=== PATIENT | female | born 1990 | race Caucasian/White ===

== ENCOUNTER 2017-06-26 21:45 | Inpatient (IN) | payer BC ==
[~2017-06-26] VITALS: Ht 157.5 cm; Wt 59.1 kg
[2017-06-26] MEDS ORDERED: MOTRIN 800800 MG/TAB PO (21:59)
[2017-06-26] MEDS ORDERED: PERCOCET 325 MG1 TA2 PO (21:59)
[2017-06-26 22:28] VITALS: BP 116/75; PULSE 78
[2017-06-26 22:45] VITALS: BP 121/78; PULSE 88
[2017-06-26 23:00] VITALS: BP 123/76; PULSE 76
[2017-06-26 23:09] LABS: BASO % 0.3 % (0.0-2.0); EOS # 0.1 (0.0-0.7); EOS % 0.5 % (0-4.0); GRAN # 9.1 (1.4-6.5); GRAN % 73.9 % (42.2-75.2); HEMATOCRIT 37.3 % (37.0-47.0); LYMPH # 2.4 (1.2-3.4); LYMPH % 19.7 % (20.0-51.0); MEAN CELL VOLUME 89 fl (80.0-100.0); MEAN CORPUSCULAR HEMOGLOBIN 31 pg (27.0-31.0); MEAN CORPUSCULAR HGB CONC 35 g/dl (33.0-37.0); MEAN PLATELET VOLUME 11.8 fl (7.4-10.4); MONO # 0.6 (0.1-0.6); MONO % 5.1 % (1.7-9.3); PLATELET COUNT 176 K/mm3 (130-400); RED BLOOD COUNT 4.17 M/mm3 (4.10-5.30); REDCELL DISTRIBUTION WIDTH-CV 12.1 % (11.5-14.5)
[2017-06-26] MEDS ORDERED: PRENATAL1 TA7 PO (23:17)
[2017-06-26 23:25] VITALS: BP 119/66; PULSE 77
[2017-06-26 23:56] VITALS: BP 118/78; PULSE 87
[2017-06-27] VITALS: BP 124/80; PULSE 68
[2017-06-27 00:30] VITALS: BP 134/68; PULSE 65
[2017-06-27] MEDS ORDERED: LEXAPRO 10MG10 MG PO (09:28)
[2017-06-27 09:30] VITALS: BP 111/76; PULSE 97; TEMP 97.6
[2017-06-27 18:40] VITALS: BP 124/77; PULSE 75; TEMP 97.6
[2017-06-28 08:52] VITALS: BP 109/75; PULSE 84; TEMP 97.8
== END 2017-06-28 09:30 | disposition home or self-care (01) | DRG 775 ==
LOC: LDRO 21:45 → LDR 21:59 → OB 06-27 00:30
PROVIDERS: Obstetrics & Gynecology
PROC: 10E0XZZ Delivery of Products of Conception, External Approach (ICD-10-PCS; principal; 2017-06-26)
PROC: 0W8NXZZ Division of Female Perineum, External Approach (ICD-10-PCS; 2017-06-26)
DX: O36.0130 Maternal care for anti-D [Rh] antibodies, third trimester, not applicable or unspecified (principal); Z3A.38 38 weeks gestation of pregnancy; Z37.0 Single live birth
CPT/HCPCS: J2590

== ENCOUNTER → 2019-02-04 | Outpatient (CLI) | payer BC ==
[~2019-02-04] MED LIST: LEXAPRO 10MG10 MG PO; MOTRIN 800800 MG/TAB PO; PERCOCET 325 MG1 TA2 PO; PRENATAL1 TA7 PO
== END ==
LOC: COL.RAD 10:19
DX: N20.0 Calculus of kidney (principal)

== ENCOUNTER 2019-05-26 10:35 | Inpatient (IN) | payer BC ==
[~2019-05-26] VITALS: Ht 157.5 cm; Wt 60.9 kg
[2019-05-26] VITALS (12 sets, daily range): BP systolic 103–137; BP diastolic 55–86; PULSE 64–99; TEMP 97.5–98
--- NOTE | 2019-05-26 11:08 | NUR ---
Pt taken off monitors per request to ambulate around room.
[2019-05-26] MEDS ORDERED: UNISOM25 MG PO (11:15)
[2019-05-26 11:19] LABS: BASO % 0.3 % (0.0-2.0); EOS % 0.4 % (0-4.0); GRAN # 8.3 (1.4-6.5); GRAN % 77.5 % (42.2-75.2); HEMOGLOBIN 12.1 g/dl (12.5-16.0); LYMPH # 1.7 (1.2-3.4); LYMPH % 15.7 % (20.0-51.0); MEAN CELL VOLUME 86 fl (80.0-100.0); MEAN CORPUSCULAR HEMOGLOBIN 30 pg (27.0-31.0); MEAN CORPUSCULAR HGB CONC 34 g/dl (33.0-37.0); MEAN PLATELET VOLUME 11.3 fl (7.4-10.4); MONO # 0.6 (0.1-0.6); MONO % 5.8 % (1.7-9.3); PLATELET COUNT 166 K/mm3 (130-400); RED BLOOD COUNT 4.09 M/mm3 (4.10-5.30); REDCELL DISTRIBUTION WIDTH-CV 12.5 % (11.5-14.5)
[2019-05-26 11:20] LABS: HEMATOCRIT 35.3 % (37.0-47.0)
--- NOTE | 2019-05-26 11:21 | NUR ---
Pt and spouse arrived ambulatory to unit at 1040, sent over from office. Pt in good spirits, denies leaking of fluid, states that she has bloody show, and good movement. States she has been having contractions since around 0100. EFM explained and placed, vitals taken, SVE 5-6/90/0. Physician notified. Consents explained and signed, assessment complete. IV started in left forearm and labs drawn. Pt resting comfortably.
--- NOTE | 2019-05-26 12:08 | NUR ---
EFM back on at this time. Pt alternating between resting in bed, standing at bedside, and on hands and knees in bed.
--- NOTE | 2019-05-26 12:53 | NUR ---
SVE per Dr. Benites /+1. Dr. Benites remains at bedside.
--- NOTE | 2019-05-26 14:02 | NUR ---
1259 - Pt in bed, EFM back on. Pt breathing and moaning through contractions, states she is starting to feel the urge to push. Dr. Benites remains at bedside. 1313 - Pt repositioned to all 4s in bed. 1315 - Pt repositioned self to semifowlers position, requests Dr. Benites to check progress. 1316 - Pt complete per provider. Physician prepped and ready for delivery. Bed remains intact per physician, pt starts pushing with proivder.
--- NOTE | 2019-05-26 14:06 | NUR ---
1321 - Viable female delivered by Dr. Benites post mild shoulder dystocia, less than 30 seconds, per physician. placed on mother's abdomen, care of infant transferred to Chuyita Medel RN of nursery. Cord blood collected and sent to lab. 1328 - Placenta delivered by Dr. Benites. Pt perineum intact with prolapse of cervix per physician. Pericare provided, clean bed pad and ice pack placed. Pt positioned for comfort.
--- NOTE | 2019-05-26 14:16 | NUR ---
1321 - [facility] Head of bed lowered, bottom of bed broken down per physician to improve delivery angle. Infant delivered without need for further intervention.
--- NOTE | 2019-05-26 15:45 | NUR ---
Pt up to bathroom, ambulating with steady gait under own power. Pericare done by pt, clean gown, panties, and pad provided. Pt ambulated to room with no complications. Pt positioned for comfort, oriented to room. Denies needs at this time.
[2019-05-27] VITALS: BP 112/62; PULSE 80; TEMP 98
[2019-05-27] MEDS ORDERED: MOTRIN 800800 MG/TAB PO (08:53)
[2019-05-27] MEDS ORDERED: ZOLOFT 50MG50 MG PO (08:53)
[2019-05-27 09:30] VITALS: BP 120/75; PULSE 87; TEMP 97.9
== END 2019-05-27 16:45 | disposition home or self-care (01) | DRG 807 ==
LOC: LDRO 10:35 → LDR 11:07 → OB 15:52 → LDRO 06-07 09:06
PROVIDERS: ADMIT Obstetrics & Gynecology
PROC: 10E0XZZ Delivery of Products of Conception, External Approach (ICD-10-PCS; principal; 2019-05-26)
PROC: 10907ZC Drainage of Amniotic Fluid, Therapeutic from Products of Conception, Via Natural or Artificial Opening (ICD-10-PCS; 2019-05-26)
DX: O99.284 Endocrine, nutritional and metabolic diseases complicating childbirth (principal); Z37.0 Single live birth; E05.00 Thyrotoxicosis with diffuse goiter without thyrotoxic crisis or storm; Z3A.38 38 weeks gestation of pregnancy; O66.0 Obstructed labor due to shoulder dystocia
CPT/HCPCS: J2590; J2791